=== PATIENT | female | born 1985 | race Caucasian/White ===

== ENCOUNTER 2025-10-11 09:51 | Outpatient (CLI) | payer OTHER, SELFPAY ==
--- NOTE | ~2025-10-11 | US_ITS ---
ULTRASOUND ABDOMEN LIMITED (RIGHT UPPER QUADRANT) Clinical History: abdomen pain Comparison: None Technique: Right upper quadrant sonography Findings: Liver: Normal size. Normal echotexture. No intrahepatic biliary ductal dilatation. Normal hepatopedal flow main portal vein. Common Duct: Normal caliber. 4 mm. Gallbladder: Stone. No wall thickening. No pericholecystic fluid. Negative sonographic Francisco's sign per technologist report. Pancreas: Visualized portions unremarkable. IMPRESSION: 1. Gallstone. No evidence of cholecystitis. Reviewed, dictated and finalized at location [facility]
== END 2025-10-11 09:52 | disposition home or self-care (01) ==
PROVIDERS: PCP Internal Medicine; Visit Provider Internal Medicine
DX: K80.20 Calculus of gallbladder without cholecystitis without obstruction (principal)
CPT/HCPCS: 76705

== ENCOUNTER 2025-11-09 14:11 | Outpatient (CLI) | payer OTHER, SELFPAY ==
--- NOTE | ~2025-11-09 | CT_ITS ---
EXAMINATION: CT abdomen pelvis w con DATE: 11/09/2025 15:02 INDICATION: Generalized abdominal pain. TECHNIQUE: Computed tomography (CT) of the abdomen and pelvis was performed with 100 mL Omnipaque 350 intravenous contrast. Automated exposure control and iterative reconstruction technique were employed. The dose-length product was 1012.89 mGy-cm. COMPARISON: None. FINDINGS: The visualized portions of the lung bases are clear without pneumonia or pleural effusion. The heart size is normal. No pericardial effusion. The liver, gallbladder, spleen, pancreas, and adrenal glands are normal. There are cysts in the kidneys measuring up to 10 mm on the left. There are uterine fibroids measuring up to 2.5 cm. The appendix is normal. There are no dilated loops of bowel. There are no pathologically enlarged lymph nodes. There is no free intraperitoneal fluid. There is a 1.9 cm corpus luteum cyst in right ovary. There is mild thoracic and lumbar spondylosis. IMPRESSION: 1. Uterine fibroids. Reviewed, dictated and finalized at location E. [facility] IMPRESSION: 1. Uterine fibroids.
== END 2025-11-09 14:12 | disposition home or self-care (01) ==
LOC: MICIMG 14:12
PROVIDERS: PCP Internal Medicine; Visit Provider Internal Medicine
DX: D25.9 Leiomyoma of uterus, unspecified (principal)
CPT/HCPCS: 74177; Q9967